=== PATIENT | female | born 1975 | race Caucasian/White ===

== ENCOUNTER 2018-04-17 09:20 | Outpatient (CLI) | payer OTHER | END 2018-04-17 09:28 | disposition home or self-care (01) | LOC: LAB 09:20 | DX: J11.1 Influenza due to unidentified influenza virus with other respiratory manifestations (principal); J06.9 Acute upper respiratory infection, unspecified ==

== ENCOUNTER 2019-02-01 07:29 | Outpatient (CLI) | payer OTHER | END 2019-02-01 10:37 | disposition home or self-care (01) | LOC: SONOGRAMA 07:29 | DX: E04.2 Nontoxic multinodular goiter (principal) ==

== ENCOUNTER → 2020-07-20 | Outpatient (CLI) | payer OTHER | END | disposition home or self-care (01) | LOC: SONOGRAMA 08:54 | PROVIDERS: ATTEND Pathology Anatomic Pathology & Clinical Pathology | DX: E04.2 Nontoxic multinodular goiter (principal) ==

== ENCOUNTER 2020-09-01 07:23 | Outpatient (CLI) | payer OTHER | END 2020-09-01 07:28 | disposition home or self-care (01) | LOC: SONOGRAMA 07:23 → MAMO-SONO 09:45 | PROVIDERS: ATTEND Obstetrics & Gynecology Maternal & Fetal Medicine | DX: N84.0 Polyp of corpus uteri (principal) ==

== ENCOUNTER 2021-02-19 08:36 | Outpatient (CLI) | payer OTHER | END 2021-02-19 08:38 | disposition home or self-care (01) | LOC: SONOGRAMA 08:36 | PROVIDERS: ATTEND Pathology Anatomic Pathology & Clinical Pathology | DX: D34 Benign neoplasm of thyroid gland (principal); E06.3 Autoimmune thyroiditis ==